=== PATIENT | male | born 1980 | race Caucasian/White ===

== ENCOUNTER 2018-11-27 11:32 | Emergency (ER) | payer SELFPAY ==
[2018-11-27 11:33] VITALS: BP 142/94; PULSE 82; RESP 18; TEMP 37.2; O2SAT 99; BMI 25.1
--- NOTE | 2018-11-27 11:54 | CT_ITS ---
STUDY: CT ABDOMEN AND PELVIS WITHOUT CONTRAST REASON FOR EXAM: Male, 38 years old. Sudden onset of left flank pain. History of kidney stones. RADIATION DOSAGE (If Supplied By Facility): CTDIvol = ( 6.37 ) mGy, DLP = ( 324.90 ) mGycm TECHNIQUE: Transaxial images were obtained from the dome of the diaphragm to the symphysis pubis without oral contrast, and without intravenous contrast. Sagittal and coronal images were reconstructed. Individualized dose optimization techniques were used for this CT. COMPARISON: Comparison is made with prior study dated June 17, 2017. FINDINGS: The visualized lung bases are unremarkable. The visualized portions of the heart are within normal limits. Normal liver. Normal gallbladder and extrahepatic biliary system. Normal spleen. Normal pancreas. Normal bilateral adrenal glands. There is a 5 mm calculus in the lower pole calyx of the right kidney. Punctate calcification is seen in the mid pole calyx of the right kidney. Punctate calcification in the upper pole calyx of the left kidney. Normal visualized stomach. Normal small intestine. There are scattered colonic diverticula consistent with diverticulosis. The appendix is visualized and appears normal. Normal abdominal aorta. Normal inferior vena cava. Normal retroperitoneum. Normal urinary bladder. There are prostatic calcifications. Normal abdominal wall. There is straightening of the normal lumbar lordosis. CT/Abdomen/Pelvis without Cont IMPRESSION: Stable bilateral intrarenal calculi more prominent on the right side. Electronically Signed: Rahul Spence, at 12:45 EST , Service support ,
--- NOTE | 2018-11-27 12:12 | ED.DCSUM_ITS ---
- ER Visit Summary Date of Service: 11/27/18 Chief Complaint: Flank pain History of Present Illness: The patient is a 38 M who presents with left flank pain that began today. Patient states the pain was there when he woke up. Patient states he knows that he has a stone in his left kidney. Patient describ es the pain is stabbing. Patient states the pain is worse with certain movements. Patient states the pain is better at rest. Patient states the pain is localized to the left flank area. Patient denies any radiation of the pain. Patient denies any nausea or vomiting. Patient denies any diarrhea. Patient denies any dysuria hematuria. Physical Examination: Vital signs are stable. Patient is afebrile. Patient is in no acute distress. Oral mucosa is pink and moist. Neck is supple. Trachea is midline. No JVD noted. Heart was regular rate and rhythm. Lungs are clear and equal bilaterally. Abdomen is soft. Bowel sounds are normal. There is no tenderness noted. There is some left CVA tenderness. There is no rebound or guarding noted. Cranial nerves II through XII are intact. There are no focal motor or sensory deficits noted. The remaining physical exam is within normal limits. Test Results: Urinalysis does not show any evidence of urinary tract infection. CT scan of the abdomen and pelvis was obtained. There are bilateral renal calculi but no ureteral calculi or obstruction. Emergency Department Course and Treatment: Patient was given IV fluids and Toradol. Patient felt better on reevaluation. Patient was advised of his results. Patient was advised that this may be muscular strain from lifting at work. Patient was given a prescription for Naprosyn. Patient was instructed to follow-up with his primary care physician in 5-7 days. Patient understood and was agreeable with the plan. All questions were answered. Disposition: Discharge home Impression: Lumbosacral strain This note was generated with [employer] dictation software. It may contain incorrect words, spelling, and punctuation that were not noted in review of the chart prior to signing ED Disposition - Plan for ED Patient: Disposition: Home or Assisted Living Diagnosis: Lumbar strain Instructions: ED Sprain Strain Lumbar Prescriptions: Naproxen [Naprosyn] 500 mg PO BID PRN #20 tab Referrals: Care Physician,No Primary [Primary Care Provider] -
[2018-11-27] MEDS: 0.9% Normal Saline 1,000 ML 250 ML IV (12:16)
[2018-11-27] MEDS: Ketorolac 30 MG/ML Syringe IV (12:16)
[2018-11-27] MEDS: Ondansetron 4 MG/2 ML Vial IV (12:16)
[2018-11-27 12:17] LABS: Squamous Epithelial Cells - UA 0 SEEN /hpf (0-5)
[2018-11-27 12:34] LABS: Color, Urine Yellow (Yellow); Glucose, Dipstick Normal (Normal); Ketone-Dipstick 5 mg/dl (Negative); Leukocyte Esterase-Dipstick 25 /ul (Negative); Nitrite-Dipstick Negative (Negative); Occult Blood-Urine 10 /ul (Negative); Protein-Dipstick 15 mg/dl (Negative); Specific Gravity, Urine 1.025 (1.002-1.030); Urine Bilirubin Dipstick Negative (Negative); Urine Clarity Sl. Cloudy (Clear); Urine Urobilinogen 1 mg/dl (Normal)
[2018-11-27 12:44] LABS: Mucous, Urine 2+ /hpf (<or=2+); Red Blood Cells-Urine 0-5 SEEN /hpf (0-5); White Blood Cells 0-5 SEEN /hpf (0-5)
[2018-11-27 12:45] LABS: Bacteria 1+ /hpf (None Seen)
[2018-11-27 14:00] VITALS: BP 127/77; PULSE 71; RESP 16; O2SAT 100
[2018-11-27 14:26] VITALS: BP 127/77; PULSE 71; RESP 16; O2SAT 100
== END 2018-11-27 14:27 | disposition home or self-care (01) ==
PROVIDERS: Emergency Provider Emergency Medicine
DX: S39.012A Strain of muscle, fascia and tendon of lower back, initial encounter (principal); X50.9XXA Other and unspecified overexertion or strenuous movements or postures, initial encounter; Y93.9 Activity, unspecified; Y92.89 Other specified places as the place of occurrence of the external cause; Y99.0 Civilian activity done for income or pay; N20.0 Calculus of kidney; J02.9 Acute pharyngitis, unspecified
CPT/HCPCS: 74176; 81001; 96361; 96374; 96375; 99283; J7030; A4216; J2405

== ENCOUNTER 2019-09-08 22:35 | Emergency (ER) | payer SELFPAY ==
[2019-09-08 22:36] VITALS: BP 133/84; PULSE 102; RESP 17; TEMP 36.3; O2SAT 97; BMI 30.1
--- NOTE | 2019-09-08 23:04 | ED.VIS.GEN ---
History of Present Illness Chief Complaint: Headache Informant: Patient Narrative: Stated he has had nausea and vomiting since this morning. He woke up with nausea and vomited 6 times today. No home treatment. He has had 1 normal bowel movement. He said family members including his children with 24-hour flu bug. He denies any other symptoms except for he stated he felt like the right side of his scalp was hot tonight. He stated over the last 4 months he has been having a work-up for a soft tissue mass on his scalp. He stated that he had a CT of his head and was told that there is nothing intracranial. He is unsure if it is a cyst or an abscess. He stated it felt hot today. He also stated he felt slight vertigo. He did not feel like he was going to pass out. Comes in for further evaluation and treatment. Current severity is mild. - Past Medical History (1) Nephrolithiasis Status: Acute (2) Ureteral calculi Status: Acute Comment: s/p ESWL with no stent comes with severe pain from stones causing obstruction of the distal left ureter. Past Medical History - Allergies and Home Meds Allergies/Adverse Reactions: Allergies No Known Allergies Allergy (Verified 09/08/19 22:35) Primary Care Physician: Care Physician,No Primary [Primary Care Provider] - Prior records reviewed: Yes Past Medical History: - - See problem list Surgical History: - - lithotrypsy Lives: With Family Smoking Status: Never smoker Alcohol: None Drugs: None - Family History Maternal Family History: Reports: No pertinent history Paternal Family History: Reports: No pertinent history Review of Systems General: Denies: Chills, Fever, Sweats Eyes: Denies: Visual changes - bilaterally, Diplopia ENT: Denies: Rhinorrhea, Sore throat Cardiovascular: Denies: Chest pain, Palpitations Respiratory: Denies: Dyspnea, Cough, Dyspnea on exertion Gastrointestinal: Reports: Nausea, Vomiting. Denies: Abdominal pain, Diarrhea, Melena, Hematochezia Genitourinary: Denies: Dysuria, Hematuria, Frequency Musculoskeletal: Denies: Back pain, Extremity Pain Skin: Denies: Rash, Wounds Neurological: Denies: Headache, Weakness, Numbness Physical Exam Vital Signs/Narrative: Vital Signs Temp Pulse Resp BP Pulse Ox 09/08/19 22:36 97.3 F L 102 H 17 133/84 H 97 General: Well nourished, Well developed, No Acute Distress Head: Normocephalic, Atraumatic Eyes: Perrl, EOMI ENT: Moist mucous membranes, No rhinorrhea Neck: Supple, Nontender Cardiovascular: Regular rate, Regular rhythm, No murmurs Respiratory: No distress, CTA bilaterally, Chest nontender Abdomen: Soft, Nontender, Nondistended, Normal bowel sounds Back: Nontender, Normal Inspection Extremities: Nontender, No edema Skin: Normal color, No rash, - - Scalp appears normal. There is no abscess or mass Neurological: Alert, Oriented x3, Cranial nerves II-XII grossly intact, Normal Strength, Normal Sensation Psychological: Normal affect, Normal Mood Diagnostic/Tx/Re-eval - Medical Decision Making Given IV fluids Toradol and Zofran. Lab work obtained. Lab work shows a mild leukocytosis. Lab work essentially otherwise unremarkable. I feel the patient can be discharged home. He does feel significantly better. Also given a dose of meclizine. At this time I feel he likely has a viral syndrome causing vomiting. I also feel like he has vertigo. He will be given meclizine and Zofran for home. We will follow-up as an outpatient ED Disposition - Plan for ED Patient: Diagnosis: Vomiting, Vertigo Instructions: Benign Positional Vertigo, VOMITING (6y-Adult) Prescriptions: Meclizine HCl [Antivert] 25 mg PO TID PRN PRN #10 tab PRN Reason: Vertigo Prescription Printed Ondansetron [Zofran Odt] 4 mg PO Q8H PRN PRN #10 tab PRN Reason: Nausea Prescription Printed Referrals: Care Physician,No Primary [Primary Care Provider] -
[2019-09-08] MEDS: Ondansetron 4 MG/2 ML Vial IV (23:17)
[2019-09-08] MEDS: 0.9% Normal Saline 1,000 ML 1000 ML IV (23:17)
[2019-09-08 23:21] LABS: Absolute Lymphocyte Count 0.62 X10^3/uL (0.83-4.51); Absolute Neutrophil Count 10.4 X10^3/uL (2.0-7.7); Basophil# 0.01 X10^3/uL; Basophil% 0.1 % (0-1); Eosinophil# 0.01 X10^3/uL; Eosinophils% 0.1 % (0-5); Hematocrit 46.6 % (40-54); Hemoglobin 16.5 g/dL (13.0-16.5); Lymphocyte # 0.62 X10^3/ul (4.0); Lymphocyte % 5.3 % (19-41); Mean Corp Hgb Conc 35.4 g/dL (32-36); Mean Corpuscular Hgb 31.1 pg (27.0-32.0); Mean Corpuscular Volume 87.9 fL (80-94); Mean Platelet Vol. 8.9 fl (6.2-12.0); Monocyte% 4.3 % (0-10); NRBC Flagged by Analyzer 0 % (0-5); Neutrophil # 10.41 X10^3/uL (2.7-7.7); Neutrophil % 89.9 % (47-70); Platelet Count 227 K/mm3 (150-450); RBC Distribution Width CV 12.3 % (11.6-14.6); RBC Distribution Width SD 39.7 fl (35.1-43.9); White Blood Count 11.6 K/mm3 (4.4-11.0)
[2019-09-08 23:45] LABS: ALB/GLOB Ratio 1.3 RATIO (0.9-2.4); AST(SGOT) 15 U/L (15-37); Alanine Aminotransfer ALT/SGPT 24 U/L (16-61); Albumin, Serum 3.8 g/dL (3.2-5.0); Alkaline Phosphatase 52 U/L (45-117); Anion Gap 5 (5-15); BUN 18 mg/dL (7-18); BUN/Creat Ratio 17.3 RATIO (10-20); Calcium,Total 8.1 mg/dL (8.5-10.1); Chloride 104 mmol/L (98-107); Creatinine, Serum 1.04 mg/dL (0.70-1.30); EST Glomerular Filtration Rate 84 mL/min (>60); Est Glom Filt Rate - Afr Amer 102 mL/min (>60); Estimated Creatinine Clearance 98.46 ml/min; Globulin 2.9 g/dL (2.2-4.2); Glucose 103 mg/dL (74-106); Lipase 79 U/L (73-393); Potassium 3.6 mmol/L (3.5-5.1); Protein, Total 6.7 g/dL (6.4-8.2); Sodium Level 137 mmol/L (136-145)
[2019-09-09 00:35] VITALS: BP 135/86; PULSE 101; RESP 16; O2SAT 97
[2019-09-09] MEDS: Ondansetron 4 MG/2 ML Vial IV (00:50)
[2019-09-09] MEDS: Meclizine HCl 25 MG Tablet PO (00:50)
[2019-09-09 01:06] VITALS: RESP 16
== END 2019-09-09 01:06 | disposition home or self-care (01) ==
PROVIDERS: Emergency Provider Emergency Medicine
DX: R11.2 Nausea with vomiting, unspecified (principal); R42 Dizziness and giddiness
CPT/HCPCS: 80053; 83690; 85025; 96361; 96374; 96375; 99284; J7030; A4216; J2405

== ENCOUNTER 2019-12-27 12:12 | Emergency (ER) | payer SELFPAY ==
[2019-12-27 12:14] VITALS: BP 149/79; PULSE 99; RESP 16; TEMP 36.6; O2SAT 98; BMI 24.7
--- NOTE | 2019-12-27 12:25 | ED.VIS.GEN ---
History of Present Illness Chief Complaint: Ear Problem Narrative: Patient is a 39-year-old male who presents with left-sided scalp pain. He complains of shooting pain above his ear and towards the back of his scalp. This is only lasting seconds at a time however it is severe when he has it. He describes it as sharp and shooting. He went to an urgent care who told him he may need to go to the emergency department for a scan or x-rays. Patient had a fever several days ago but no symptoms since that time. He does not have associated URI-like illness such as congestion rhinorrhea cough. Review of systems is otherwise negative. Past Medical History - Allergies and Home Meds Allergies/Adverse Reactions: Allergies No Known Allergies Allergy (Verified 12/27/19 12:15) Primary Care Physician: Care Physician,Delmi Primary [Primary Care Provider] - Past Medical History: None Surgical History: - - lithotrypsy Smoking Status: Never smoker - Family History Maternal Family History: Reports: No pertinent history Paternal Family History: Reports: No pertinent history Review of Systems All systems negative except as indicated General: Reports: Fever ENT: Reports: Left ear pain Cardiovascular: Denies: Chest pain Respiratory: Denies: Dyspnea Gastrointestinal: Denies: Nausea, Vomiting Musculoskeletal: Denies: Myalgias, Arthralgias Skin: Denies: Rash Neurological: Denies: Headache Physical Exam Vital Signs/Narrative: Vital Signs Temp Pulse Resp BP Pulse Ox 12/27/19 12:14 97.8 F 99 16 149/79 H 98 Inital Vital Signs reviewed: Yes General: Well nourished, Well developed Head: Normocephalic, - - No scalp tenderness, no rash Eyes: EOMI ENT: Moist mucous membranes, TM's clear Neck: Supple Cardiovascular: Regular rate Respiratory: No distress Skin: Normal color Neurological: Alert Psychological: Normal affect Diagnostic/Tx/Re-eval - Medical Decision Making Patient has a normal examination he has no reproducible tenderness no rash. This may be neuropathic pain attributable to neuralgia. We will start naproxen for now. Patient advised to follow-up as an outpatient and was discharged home. ED Disposition - Plan for ED Patient: Disposition: Home or Assisted Living Diagnosis: Scalp pain Referrals: Care Physician,No Primary [Primary Care Provider] - Tasha Agarwal MD [STAFF PHYSICIAN] - Additional Instructions: You were seen today for pain on your scalp. This may be related to irritation of the nerve. Take medication as prescribed. Follow-up as an outpatient.
== END 2019-12-27 12:34 | disposition home or self-care (01) ==
PROVIDERS: Emergency Provider Emergency Medicine
DX: R20.8 Other disturbances of skin sensation (principal)
CPT/HCPCS: 99282

== ENCOUNTER 2024-04-09 16:50 | Emergency (ER) | payer OTHER, SELFPAY ==
[2024-04-09 16:51] VITALS: BP 175/101; PULSE 92; RESP 16; TEMP 37; O2SAT 98; BMI 26.2
[2024-04-09 16:57] VITALS: O2SAT 98
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
[2024-04-09 18:34] VITALS: BP 153/96; PULSE 91; RESP 14; TEMP 37; O2SAT 98
== END 2024-04-09 18:34 | disposition home or self-care (01) ==
PROVIDERS: Emergency Provider Emergency Medicine; Visit Provider Emergency Medicine
DX: S09.90XA Unspecified injury of head, initial encounter (principal); S16.1XXA Strain of muscle, fascia and tendon at neck level, initial encounter; V49.40XA Driver injured in collision with unspecified motor vehicles in traffic accident, initial encounter; Y93.89 Activity, other specified; Z87.891 Personal history of nicotine dependence
CPT/HCPCS: 70450; 72125; 99282